=== PATIENT | female | born 1940 | race Caucasian/White ===

== ENCOUNTER 2018-08-29 09:53 | Observation (INO) ==
[2018-08-29 10:35] LABS: BASO# 0.06 X1000 (0.0-0.2); BASO% 0.3 % (0.0-0.8); EOS# 0.26 X1000 (0.0-0.7); EOS% 1.4 % (0.0-10.0); HEMATOCRIT 35.6 % (37.0-47.0); HEMOGLOBIN 11.9 g/dL (12.0-16.0); IMM GRAN# 0.06 X1000 (0.0-0.04); IMM GRAN% 0.3 % (0.0-0.5); LYMPH# 4.55 X1000 (1.2-3.4); LYMPH% 24.6 % (20.5-51.1); MCH 31.1 PG (27-31); MCHC 33.4 g/dL (33-37); MONO# 1.54 X1000 (0.11-0.59); MONO% 8.3 % (1.7-9.3); MPV 9.5 FL (7.4-10.4); NEUT# 12.05 X1000 (1.4-6.5); NEUT% 65.1 % (42.2-75.2); PLT 306 X1000 (130-400); RBC 3.83 XMIL (4.2-5.4); WBC 18.52 X1000 (4.8-10.8)
--- NOTE | 2018-08-29 10:42 | PROVIDER DOCUMENTATION ---
HPI-General Adult - General Chief Complaint: Cough Stated Complaint: FEVER,COUGHING,NAUSEA,SORE THROAT Time Seen by Provider: 08/29/18 10:05 Source: patient Allergies/Adverse Reactions: Patient Allergies Allergy/AdvReac Type Severity Reaction Status Date / Time doxycycline Allergy HIVES Verified 08/23/18 20:35 Penicillins AdvReac HIVES Verified 08/23/18 20:35 Home Medications: Home Medication List Medication Instructions Recorded Confirmed Last Taken Type Aspirin [Aspir-Low] 81 mg PO DAILY 08/23/18 08/29/18 Unknown History Metoprolol Succinate 12.5 mg PO DAILY 08/23/18 08/29/18 Unknown History Pantoprazole Sodium [Protonix] 20 mg PO DAILY 08/23/18 08/29/18 Unknown History Simvastatin 20 mg PO DAILY 08/23/18 08/29/18 Unknown History Mupirocin Cream [Bactroban Cream] 1 applicatn TOP TID #1 tube 08/25/18 08/29/18 Unknown Rx - History of Present Illness -Gen Adult Nature of Presenting Problems: Patient is a 77 yowf who complains of productive cough with green sputum, chills, and nausea since Tuesday night. Denies vomiting or diarrhea. Took Tylenol at 0700 this morning. Denies any other symptoms. She is non-toxic in appearance. Review of Systems - Adult - REVIEW OF SYSTEMS - ADULT Constitutional: reports: see HPI, chills Eyes: reports: no symptoms reported Ears, Nose, Mouth & Throat: reports: no symptoms reported Cardiovascular: reports: no symptoms reported Respiratory: reports: see HPI, cough. denies: chronic cough, dyspnea on exertion, excessive sputum production, hemoptysis, pleurisy, shortness of breath, wheezing Gastrointestinal: reports: see HPI, nausea Genitourinary: reports: no symptoms reported Musculoskeletal: reports: no symptoms reported Integumentary: reports: no symptoms reported Neurological: reports: no symptoms reported Psychiatric: reports: no symptoms reported Endocrine: reports: no symptoms reported Hematologic/Lymphatic: reports: no symptoms reported Allergic/Immunologic: reports: no symptoms reported All Other Systems: Reviewed and Negative Past History - Adult - PAST MEDICAL HISTORY-ADULT Review of Records: reports: Nursing Assessment Review, Medications Reviewed, Social history reviewed & non-contributory. Major Childhood Illnesses: reports: denies history Cardiovascular: reports: hyperlipidemia Respiratory: reports: denies history Gastrointestinal: reports: other (diverticulitis) Obstetrical/Gynecological: reports: denies history Genitourinary: reports: denies history Musculoskeletal: reports: denies history Neurological: reports: denies history Endocrine/Immune: reports: denies history Other Conditions: reports: denies history - PRIOR SURGERIES/PROCEDURES Surgical/Procedure History: reports: reviewed, not pertinent - IMMUNIZATION STATUS Childhood Immunizations: See Nurse Assessment Flu Vaccine: See Nurse Assessment - FAMILY HISTORY Family History: reviewed, not pertinent - SOCIAL HISTORY Smoking: non-smoker, quit greater than 1 year Physical Exam-General - PHYSICAL EXAM-ADULT Initial Vital Signs Reviewed: Yes - CONSTITUTIONAL General Appearance: alert, no apparent distress. negative: lethargic, slow to respond - EYES Eyes: PERRL/EOMI, pink conjunctivae - HEAD, EARS, NOSE, MOUTH & THROAT HENMT: normocephalic/atraumatic, moist mucous membranes, normal ENT inspection - NECK Neck: non-tender, full range of motion, supple, normal inspection - RESPIRATORY Respiratory: chest non-tender, lungs clear, normal breath sounds, no pleuratic chest pain, no respiratory distress, no accessory muscle use - CARDIOVASCULAR Cardiovascular: normal peripheral pulses, regular rate, rhythm, no edema, no gallop, no JVD, no murmur - GASTROINTESTINAL (ABDOMEN) Abdominal Exam: normal bowel sounds, non tender, soft - MUSCULOSKELETAL Back Exam: normal inspection Extremity: normal range of motion, non-tender, normal gait, normal inspection - SKIN Integumentary: normal color, warm/dry. negative: cyanosis, diaphoresis, jaundice, mottled, pallor - NEUROLOGIC Neurologic: grossly normal, no motor/sensory deficits - PSYCHIATRIC Psych/Mental Status: normal mood/affect, normal thought content, normal thought process, oriented x 3 Progress - PLAN OF CARE/RESULTS Progress/Plan/Lab Results: Vital Signs - 8 hr 08/29/18 09:56 Temperature 98.1 F Pulse Rate 98 H Respiratory Rate 20 Blood Pressure 139/80 O2 Sat by Pulse Oximetry 95 Laboratory Results - last 24 hr 08/29/18 10:21 WBC 18.52 H RBC 3.83 L Hgb 11.9 L Hct 35.6 L MCV 93.0 MCH 31.1 H MCHC 33.4 RDW Std Deviation 13.0 Plt Count 306 MPV 9.5 Immature Gran % (Auto) 0.3 Neut % (Auto) 65.1 Lymph % (Auto) 24.6 Clark % (Auto) 8.3 Eos % (Auto) 1.4 Baso % (Auto) 0.3 Immature Gran # (Auto) 0.06 H Neut # (Auto) 12.05 H Lymph # (Auto) 4.55 H Clark # (Auto) 1.54 H Eos # (Auto) 0.26 Baso # (Auto) 0.06 Orders Category Date Time Status CHEST-2 VIEWS [RAD] Stat Exams 08/29/18 10:13 Taken CBC WITH DIFF [HEME] Stat Lab 08/29/18 10:21 Completed COMPREHENSIVE METABOLIC PANEL [CHEM] Stat Lab 08/29/18 10:21 Received UA NIMS W/REFLEX CULT [URINALYSIS] Stat Lab 08/29/18 10:37 Uncollected 1118- Admitting HPS paged. Pt in agreement with admission plan. Discussed case with Dr. Powers who is also in agreement with admission. Result Diagrams: 08/29/18 10:21 08/29/18 10:21 - XRAY 1 XRAY Study: Chest (IMPRESSION: COPD with pulmonary fibrosis. Electronically signed by Rocky Hawkins 08/29/2018 10:43 AM) - CONSULTS/PCP/HOSPITALIST Notification #1 *Consult/PCP/Hospitalist*: Summer, [facility] PHYSICIAN INTERVENTIONAL CARDIOLOGIST Time Discussed: 11:29 Reason/Comments: admission- UTI, cough, leukocytosis Consult Disposition: Will see in ED, Admit (to Dr. Hartmann) Departure - Departure Date of Disposition Decision: 08/29/18 Time of Disposition Decision: 11:18 DIAGNOSIS: Cough UTI (urinary tract infection) Qualifiers: Urinary tract infection type: site unspecified Hematuria presence: without hematuria Qualified Code(s): N39.0 - Urinary tract infection, site not specified Leukocytosis Qualifiers: Leukocytosis type: unspecified Qualified Code(s): D72.829 - Elevated white blood cell count, unspecified Disposition: ADMITTED INPATIENT 09 Certified Medical Emergency: Emergent Condition: Stable Referrals and Follow-Ups: Brianne Combs MD [Primary Care Provider] - - Critical Care Note This patient required my direct & personal management of CC.: No Attestation - Physician/ GERDA Attestation Patient care was provided by Advanced Practice Provider:: Yes Advanced Practice Provider:: Kalyan Smalls Advanced Practice Provider documentation review:: The Mid-level provider documentation, treatment plan and medical decision making was reviewed by the physician who agrees with all treatment and medical decision making by the MLP. The physician spent face to face time with patient:: No Advanced Practice Provider documentation review:: Supervising physician onsite and consulted in the evaluation and care of this patient. The physician did not have a face to face encounter with the patient.
--- NOTE | 2018-08-29 10:45 | Diag Imaging Result Doc PS360 ---
CHEST-2 VIEWS - 08/29/2018 INDICATION: cough COMPARISON: 10/11/2017 FINDINGS: There is COPD. There is pulmonary fibrosis in the lung bases which is asymmetric, left greater than right. No definite infiltrates. Heart size and pulmonary vascularity is normal. IMPRESSION: COPD with pulmonary fibrosis. Electronically signed by Rocky Hawkins 08/29/2018 10:43 AM
[2018-08-29 10:48] LABS: URINE SOURCE CLEAN CATCH
[2018-08-29 10:56] LABS: BILIRUBIN URINE NEGATIVE (NEGATIVE); BLOOD URINE TRACE (NEGATIVE); COLOR YELLOW; GLUCOSE URINE NEGATIVE (NEGATIVE); KETONE URINE NEGATIVE (NEGATIVE); LEUKOCYTES URINE LARGE (NEGATIVE); NITRITE URINE NEGATIVE (NEGATIVE); PH URINE 5.5; PROTEIN URINE NEGATIVE (NEGATIVE); SP GRAVITY URINE 1.008; TURBIDITY URINE CLEAR (CLEAR); UROBILINOGEN URINE NORMAL (NORMAL)
[2018-08-29 10:57] LABS: UR EPITHELIAL CELLS >10 /HPF (<10); URINE BACTERIA NEGATIVE /HPF; URINE RBC <10 /HPF (<10)
[2018-08-29 10:59] LABS: AGAP 11; ALB/GLOB RATIO 1.1; ALBUMIN 3.7 g/dL (3.5-5.0); ALKALINE PHOSPHATASE 60 U/L (32-104); BUN 7 mg/dL (8-22); CALCIUM 9.7 mg/dL (8.8-10.2); CHLORIDE 100 mmol/L (98-107); COSMO 271; CREATININE 0.6 mg/dL (0.5-0.9); ESTIMATED GFR > 60; GLUCOSE 148 mg/dL (70-104); GOT 15 U/L (10-30); GPT 15 U/L (10-36); POTASSIUM 4.1 mmol/L (3.5-5.1); SODIUM 135 mmol/L (136-145); TCO2 24 mmol/L (25-35); TOTAL BILIRUBIN 0.52 mg/dL (0.20-1.00); TOTAL PROTEIN 7.1 g/dL (6.3-8.3)
[2018-08-29] MEDS ORDERED: LEVAQUIN 750 MG/D5W 750 MG/150 ML IVPB IV ONE (11:17)
[2018-08-29] MEDS ORDERED: NS 1,000 ML IV ONE (11:17)
[2018-08-29] MEDS ORDERED: TYLENOL PO PRN (11:32)
[2018-08-29] MEDS ORDERED: ZOFRAN IV PRN (11:32)
[2018-08-29 11:50] LABS: INR 1.01; PROTIME 14.1 Seconds (11.0-16.0)
[2018-08-29 11:51] LABS: PTT 34.3 Seconds (22.3-41.8)
--- NOTE | 2018-08-29 11:52 | EKG Report ---
Test Performed on : 08/29/2018 11:46:32 AM Test Reason : cough Blood Pressure : / mmHG Vent. Rate : 087 BPM Atrial Rate : 087 BPM P-R Int : 128 ms QRS Dur : 128 ms QT Int : 400 ms P-R-T Axes : 054 045 030 degrees QTc Int : 481 ms Normal sinus rhythm. Right bundle branch block Possible Inferior infarct , age undetermined Abnormal ECG No previous ECGs available Unconfirmed Result
[2018-08-29] MEDS ORDERED: FLONASE NAS ONE (12:11)
[2018-08-29] MEDS: LOVENOX SUBQ SCH (12:19)
[2018-08-29] MEDS: BACTROBAN CREAM TOP SCH ×2 (12:22→17:29)
--- NOTE | 2018-08-29 12:56 | HISTORY AND PHYSICAL ---
HISTORY OF PRESENT ILLNESS: This is a 77-year-old followed recently by Dr. Combs. She reports that she has had a cough now for several days, in fact over a week. She feels like she had an insect bite behind her right knee. There was some swelling, and she described some swelling of the varicose vein below it. That has improved although there was still palpable subcutaneous nodule there. It is nontender. Her biggest concern was that she has coughed now for going on 2 weeks, and she feels like there is a little more dyspnea with exertion, and felt like she had subjective fever, chills, and general malaise so she presented to the emergency room. PAST MEDICAL HISTORY: 1. Diverticulosis which has been complicated by diverticulitis and bleeding, nothing recently. 2. She has had numerous episodes of pneumonia and pleurisy. 3. Gallbladder was removed. 4. Tonsillectomy. 5. She has had cardiac stents placed. ALLERGIES: Penicillin and doxycycline. Apparently, penicillin was a serious anaphylactic reaction but this has been years ago; she said 50 years ago. FAMILY HISTORY: Noncontributory. SOCIAL HISTORY: Negative for tobacco or alcohol. No illicit drugs. REVIEW OF SYSTEMS: General: She does not describe any weight gain or loss, but she has had subjective fever and chills over the last couple of days. Respiratory: Just a persistent nonproductive cough and a little more dyspnea with exertion. No pleuritic pain described. Cardiovascular : No chest pain or tachy palpitations. She has a history of cardiac stents. No pressure type pain described. GI and : She has not had any gross hematuria or dysuria. No change in her bowels. Musculoskeletal and Neurologic: No focal changes. Endocrinologic and Hematologic: No significant history. PHYSICAL EXAMINATION: VITAL SIGNS: Temperature 98.1, pulse 98, respirations 20, blood pressure 139/80, and 02 sat is 95%. HEENT: Pupils are equal. No distended neck veins. GENERAL: She is awake and alert, oriented x3. Pleasant. LUNGS: Clear anterolateral. No cervical or supraclavicular adenopathy appreciated. HEART: Carotid, radial, and femoral pulses 2+ and symmetrical. ABDOMEN: Soft. SKIN: Warm and dry. She has a small 0.5 cm subcutaneous nodule where the insect bite was in the right center of the popliteal fossa. ENDOCRINOLOGIC/HEMATOLOGIC: I did not see any lateralizing deficits, and she really does not have any history of endocrinologic problems. Skin is otherwise warm and dry. No mucosal membrane lesions. No oral nasal mucosa. She does have post nasal drainage appreciated. LABORATORY: White count 18,520, hematocrit 35, and platelet count 306,000. Sodium 135, potassium 4.1, chloride 100, BUN 7, creatinine 0.6, blood sugar 148, AST 15, ALT 15, alkaline phosphatase 60, and albumin 3.7. Urinalysis: She has 10 to 20 white blood cells, a large amount of leukocytes, and negative for bacteria. Chest x-ray: COPD and pulmonary fibrosis, but no infiltrate. The fibrosis is asymmetrical, left greater than the right but not sign of definite infiltrates. ASSESSMENT AND PLAN: 1. She has underlying pulmonary fibrosis. She has underlying COPD. I do not see any definite infiltrates. Her white count was elevated. We will treat her for acute bronchitis. Cannot rule out that there could be some type of pneumonitis going on. She has used Rocephin before even though she is allergic to penicillin so we will use Rocephin 1 gram IV q24 h. I do not feel she needs to be covered for atypical organisms. We will put her on a steroid inhaler. We will use Advair 250/50 1 puff twice a day. We will give her some DuoNeb's 4 times a day to schedule. She can also have a DuoNeb q. 2 h. p.r.n. request. We will put her on guaifenesin extended release 1200 mg twice a day. We will check a sputum for culture. Check another chest x-ray in the morning. We will send her down with a wheel chair, and check a PA and lateral in the morning. 2. Insect bite. It looks like it could be a chigger bite behind her right knee. It looks like that is healing well. 3. We will also put her on a nasal spray. We will use Flonase 1 puff each nostril twice a day. 4. We will recheck her CBC and basic metabolic profile in the morning with a magnesium. 5. We will give her some supplementary 02 nasal cannula 2 L per nasal cannula. cc: Shravan Hartmann MD
[2018-08-29] MEDS: ROCEPHIN 1 GM in NS 50 ML IV SCH (14:20)
[2018-08-29] MEDS: MUCINEX PO SCH ×2 (14:20→20:42)
--- NOTE | 2018-08-29 18:20 | ED EKG INTERP ---
This chart was entered by Jacqueline Mathews Scribe, acting as scribe for Fawad Powers MD. EKG Interpretation - EKG Time of EKG reading by physician:: 11:46 EKG Read and Signed by:: Fawad Powers EKG Interpretation (*Must complete 3 of following elements*): Abnormal Rate: 87 Rhythm: normal sinus rhythm [place]: normal QRS: RBB VA Interval: normal Comments: possible inferior infarct, age undetermined Attestation - Physician/ GERDA Attestation Patient care was provided by Advanced Practice Provider:: Yes Advanced Practice Provider:: Kalyan Smalls Advanced Practice Provider documentation review:: The Mid-level provider documentation, treatment plan and medical decision making was reviewed by the physician who agrees with all treatment and medical decision making by the P. The physician spent face to face time with patient:: No Advanced Practice Provider documentation review:: Supervising physician onsite and consulted in the evaluation and care of this patient. The physician did not have a face to face encounter with the patient. This chart was documented by the indicated scribe, (Jacqueline Mathews Scribe) and accurately reflects the services I performed and decisions made by , Fawad Powers MD, as attested by the provider's signature.
[2018-08-29] MEDS: DUONEB (A & A) INH SCH (20:20)
[2018-08-29] MEDS: MILK OF MAGNESIA PO SCH (20:42)
[2018-08-30] MEDS: DUONEB (A & A) INH SCH ×3 (03:20→16:05)
[2018-08-30 06:27] LABS: AGAP 6; ALB/GLOB RATIO 1.3; ALBUMIN 3.5 g/dL (3.5-5.0); ALKALINE PHOSPHATASE 58 U/L (32-104); BUN 8 mg/dL (8-22); CALCIUM 9.8 mg/dL (8.8-10.2); CHLORIDE 108 mmol/L (98-107); CK PROFILE 53 U/L (24-173); COSMO 284; CREATININE 0.7 mg/dL (0.5-0.9); ESTIMATED GFR > 60; GLUCOSE 107 mg/dL (70-104); GOT 12 U/L (10-30); GPT 13 U/L (10-36); MAGNESIUM 2.3 mg/dL (1.5-2.7); POTASSIUM 4.4 mmol/L (3.5-5.1); SODIUM 143 mmol/L (136-145); TCO2 29 mmol/L (25-35); TOTAL BILIRUBIN 0.37 mg/dL (0.20-1.00); TOTAL PROTEIN 6.3 g/dL (6.3-8.3)
[2018-08-30 06:42] LABS: FREE T4 1.05 ng/dL (0.93-1.70); TSH 2.31 uIUmL (0.27-4.20)
[2018-08-30 06:44] LABS: BASO# 0.06 X1000 (0.0-0.2); BASO% 0.5 % (0.0-0.8); EOS# 0.27 X1000 (0.0-0.7); EOS% 2.1 % (0.0-10.0); HEMATOCRIT 33.9 % (37.0-47.0); HEMOGLOBIN 10.9 g/dL (12.0-16.0); IMM GRAN# 0.03 X1000 (0.0-0.04); IMM GRAN% 0.2 % (0.0-0.5); LYMPH# 4.15 X1000 (1.2-3.4); MCHC 32.2 g/dL (33-37); MCV 93.4 FL (81-99); MONO% 10.3 % (1.7-9.3); NEUT# 6.77 X1000 (1.4-6.5); NEUT% 53.9 % (42.2-75.2); PLT 305 X1000 (130-400); RBC 3.63 XMIL (4.2-5.4); RDW 12.9 % (11.5-14.5); WBC 12.58 X1000 (4.8-10.8)
[2018-08-30] MEDS ORDERED: PRILOSEC PO SCH (07:00)
[2018-08-30 07:22] LABS: HEMOGLOBIN A1C 5.5 % (4.8-6.0)
[2018-08-30] MEDS: MUCINEX PO SCH (08:13)
[2018-08-30] MEDS: MILK OF MAGNESIA PO SCH (08:14)
[2018-08-30] MEDS: BACTROBAN CREAM TOP SCH (08:15)
[2018-08-30] MEDS ORDERED: PANTOPRAZOLE SODIUM 20 MG PO SCH (09:00)
[2018-08-30] MEDS ORDERED: TOPROL XL PO SCH (09:00)
[2018-08-30] MEDS ORDERED: ASPIRIN EC PO SCH (09:00)
--- NOTE | 2018-08-30 09:45 | Diag Imaging Result Doc PS360 ---
CHEST-2 VIEWS - 08/30/2018 INDICATION: copd COMPARISON: 08/29/2018 FINDINGS: There is stable coarse interstitial peripheral opacity in the lung bases left greater than right. No new infiltrates. Heart size and pulmonary vascularity is normal. There is probably COPD. IMPRESSION: No change from prior. Electronically signed by Rocky Hawkins 08/30/2018 9:43 AM
[2018-08-30] MEDS: LOVENOX SUBQ SCH (11:46)
[2018-08-30] MEDS: ROCEPHIN 1 GM in NS 50 ML IV SCH (11:47)
--- NOTE | 2018-08-30 14:21 | PROGRESS NOTE ---
DATE: 08/30/2018 SUBJECTIVE: Ms. Grigsby is sitting up at the edge of the bed. She feels better than she did yesterday. She is still coughing. PHYSICAL EXAMINATION: Vital signs: Afebrile, temperature 97.7 degrees, pulse 80, respirations 18, blood pressure 105/62. HEENT: Pupils are equal. Neck: No distended neck veins. Lungs: Clear anterior and posterior. Cardiovascular: Regular rhythm and rate without murmur or S3. Abdomen: Soft. Skin: Warm and dry, Genitourinary: Urine output 3200 mL. IMAGING: Chest x-ray. No change. Some interstitial peripheral opacity in the lung bases, left greater than the right. No new infiltrates. ASSESSMENT AND PLAN: 1. She feels better. Postnasal drainage and bronchial irritation, acute bronchitis, underlying pulmonary fibrosis, chronic obstructive pulmonary disease. If she is doing better, she may even get to go home today. 2. Insect bite in her right popliteal space which looks like it is healing well. 3. Continue nasal spray, Flonase twice a day and note that her leukocytosis has come down to 12,580. I will treat her for acute bronchitis. I do not see significant symptomatic urinary tract infection. Sputum cultures, blood cultures, urine culture all pending. cc: Shravan Hartmann MD
[2018-08-30 16:44] VITALS: BP 120/62
--- NOTE | 2018-08-30 17:42 | DISCHARGE SUMMARY ---
ADMISSION DATE: 08/29/2018 DISCHARGE DATE: HISTORY OF PRESENT ILLNESS: The patient was put into observation. Her doctor is Dr. Brianne Combs. This is a 77-year-old, followed by Dr. Combs. She reports that she has had a cough for several days, feels like she has had an insect bite behind her right knee and there was some swelling, but the main concern was her coughing. She has postnasal drainage. She has not had any real fever or chills. I do not appreciate any lymphadenopathy. No sinus tenderness. PAST MEDICAL HISTORY: 1. Diverticulosis complicated by diverticulitis and bleeding in the past. 2. Numerous episodes of pneumonia and pleurisy in the past. 3. Gallbladder removed. 4. Tonsillectomy. 5. She has had cardiac stents placed. HOSPITAL COURSE: 1. She was admitted with underlying pulmonary fibrosis and COPD. Did not see any infiltrate or sign of pneumonia. I treated her for acute pneumonia with Rocephin and I felt most of her bronchitis was from postnasal drainage and irritation. I put her on a steroid inhaler, Advair 250/50 one puff twice a day. We gave her the Advair to take home and continue this for a couple weeks. 2. Insect bite, which looked like a chigger bite in the right popliteal fossa and that is healing well. She has some Bactroban she is putting on it at home. It does not look infected. No adenopathy appreciated. 3. She is on a nasal spray already for postnasal drainage, so we will discharge her home. She is to follow up with her primary care physician. Note, one of the concerns when she came in was her white count was 18,520. The next day it was 12,000, and all of her other lab looked unremarkable. I do not see any sign of bacterial infection, and I suspect most of this bronchitis is nonspecific from postnasal drainage. DISCHARGE MEDICATIONS: I will let her have her Advair that she is using here 1 puff twice a day. She has her Bactroban cream. She is on Toprol-XL 12.5 mg daily. I will give her some Mucinex that she can take 1200 mg twice a day, and she is on aspirin 81 mg a day. Her Zocor is 20 mg a day, Prilosec 40 mg a day. cc: Shravan Hartmann MD
[2018-08-30] MEDS ORDERED: ZOCOR PO SCH (21:00)
== END 2018-08-30 18:03 | disposition home or self-care (01) ==
LOC: ED 09:53 → INTOOBSV 12:20 → 4N 12:20
PROVIDERS: ATTEND Emergency Medicine
CPT/HCPCS: 71020; 71046; 80053; 81001; 82550; 82607; 82746; 83036; 83605; 83735; 84100; 84439; 84443; 84484; 85025; 85610; 85730; 87040; 87070; 87077; 87088; 87186; 87205; 93005; 94640; 94761; A9270; J0696; J1650; J1956; J7030